=== PATIENT | male | born 1980 | race Caucasian/White ===

== ENCOUNTER 2023-02-05 09:00 | Outpatient (CLI) | payer OTHER, SELFPAY | END 2023-02-05 09:01 | disposition home or self-care (01) | PROVIDERS: Visit Provider Otolaryngology | DX: R42 Dizziness and giddiness (principal) | CPT/HCPCS: 84443; 85025; 85651; 86039; 86431; 86618 ==

== ENCOUNTER 2023-02-14 07:02 | Outpatient (CLI) | payer OTHER, SELFPAY ==
--- NOTE | 2023-02-14 07:15 | CRLHL7_ITS ---
For Patients: As a result of the Century Cures Act, medical imaging exams and procedure reports are released immediately into your electronic medical record. You may view this report before your referring provider. If you have questions, please contact your health care provider. Indication: Vertigo, partial hearing loss Technique: Brain and temporal bone MRI with contrast. The following sequences were obtained: DWI and ADC mapping sequences. Sagittal T1 weighted sequence. Axial FLAIR and T2 weighted sequences of the whole brain. 3D T2-weighted high resolution sequence of the temporal bones. Thin section T1 weighted axial and coronal pre-contrast and post-contrast sequences of the temporal bones. 3D T1 weighted post-contrast sequence of the whole brain. 15 ml Dotarem gadolinium based contrast agent was used. Comparison: CT 06/06/2021 Findings: No mass effect or midline shift. No hydrocephalus. No evidence of acute infarct or hemorrhage. No extra-axial collections. Normal MRI of the brain parenchyma. Unremarkable MRI of the cranial nerve cisternal segments. Unremarkable internal auditory canals, cerebellopontine angles, and temporal bone structures. Small retention cyst in the right maxillary sinus. The orbits are unremarkable. Impression: 1. No acute intracranial abnormality. 2. Unremarkable internal auditory canals, cerebellopontine angles, cranial nerve cisternal segments, and temporal bones. 3. No pathologic enhancement. Dictated by Bg Antonio MD @ 02/14/2023 4:52:47 PM (Electronically Signed)
== END 2023-02-14 07:03 | disposition home or self-care (01) ==
LOC: MRI 07:05
PROVIDERS: PCP Physician Assistant; Visit Provider Otolaryngology
DX: R42 Dizziness and giddiness (principal); H91.90 Unspecified hearing loss, unspecified ear
CPT/HCPCS: 70553; A9575